=== PATIENT | female | born 1955 | race Caucasian/White ===

== ENCOUNTER → 2017-04-03 | Outpatient (CLI) | payer BC ==
--- NOTE | 2017-04-04 13:52 | MM ---
Reason for exam: screening (asymptomatic). Last mammogram was performed 1 year and 1 month ago. History: Patient is postmenopausal. Physical Findings: A clinical breast exam by your physician is recommended on an annual basis and results should be correlated with mammographic findings. MG Screening Mammo w CAD Bilateral CC and MLO view(s) were taken. Prior study comparison: March 11, 2016, bilateral MG screening mammo w CAD. October 27, 2014, bilateral MG screening mammo w CAD. There are scattered fibroglandular densities. Asymmetric breast tissue in the right breast. No significant changes when compared with prior studies. ASSESSMENT: Benign, BI-RAD 2 RECOMMENDATION: Routine screening mammogram of both breasts in 1 year.
== END | disposition home or self-care (01) ==
LOC: RADMAMWWP 12:12
PROVIDERS: ATTEND Family Medicine
DX: Z12.31 Encounter for screening mammogram for malignant neoplasm of breast (principal)

== ENCOUNTER → 2017-10-26 | Outpatient (CLI) | payer BC ==
[2017-10-26 19:20] LABS: Basophils % (A) 1 %; Eosinophils # (A) 0.1 k/uL (0-0.7); Eosinophils % (A) 4 %; HCT 42.5 % (34.0-46.0); HGB 13.9 gm/dL (11.4-16.0); Lymphocytes % (A) 31 %; MCH 30.4 pg (25.0-35.0); MCHC 32.6 g/dL (31.0-37.0); Mean Platelet Volume 7.1; Monocytes # (A) 0.2 k/uL (0-1.0); Monocytes % (A) 5 %; Neutrophils % (A) 58 %; Platelet Count 244 k/uL (150-450); RBC 4.57 m/uL (3.80-5.40); RDW 12.5 % (11.5-15.5); WBC 3.4 k/uL (3.8-10.6)
[2017-10-26 22:59] LABS: ALT 30 U/L (9-52); AST 27 U/L (14-36); Albumin 4.1 g/dL (3.5-5.0); Alkaline Phosphatase 78 U/L (38-126); Anion Gap 9 mmol/L; Blood Urea Nitrogen 20 mg/dL (7-17); Calcium 9.9 mg/dL (8.4-10.2); Carbon Dioxide 28 mmol/L (22-30); Chloride 104 mmol/L (98-107); Cholesterol 256 mg/dL (<200); Glucose 92 mg/dL (74-99); HDL Cholesterol 52 mg/dL (40-60); LDL Cholesterol,Calculated 158 mg/dL (0-99); Potassium 4.6 mmol/L (3.5-5.1); Sodium 141 mmol/L (137-145); Total Bilirubin 0.3 mg/dL (0.2-1.3); Total Protein 7.8 g/dL (6.3-8.2); Triglycerides 229 mg/dL (<150)
[2017-10-26 23:15] LABS: T4, Free (Free Thyroxine) 1.05 ng/dL (0.78-2.19)
== END | disposition home or self-care (01) ==
LOC: MMGSC 09:50
PROVIDERS: ATTEND Family Medicine
DX: Z00.00 Encounter for general adult medical examination without abnormal findings (principal)
CPT/HCPCS: 36415; 80053; 80061; 84439; 84443; 85025

== ENCOUNTER → 2018-03-28 | Outpatient (CLI) | payer BC ==
--- NOTE | 2018-03-30 08:39 | MM ---
Reason for exam: screening (asymptomatic). Last mammogram was performed 1 year ago. History: Patient is postmenopausal. Physical Findings: A clinical breast exam by your physician is recommended on an annual basis and results should be correlated with mammographic findings. MG Screening Mammo w CAD Bilateral CC and MLO view(s) were taken. Prior study comparison: April 03, 2017, bilateral MG screening mammo w CAD. March 11, 2016, bilateral MG screening mammo w CAD. The breast tissue is heterogeneously dense. This may lower the sensitivity of mammography. No suspicious abnormality. No significant changes when compared with prior studies. ASSESSMENT: Negative, BI-RAD 1 RECOMMENDATION: Routine screening mammogram of both breasts in 1 year.
== END | disposition home or self-care (01) ==
LOC: RADMAMWWP 16:48
PROVIDERS: ATTEND Obstetrics & Gynecology
DX: Z12.31 Encounter for screening mammogram for malignant neoplasm of breast (principal)
CPT/HCPCS: 77067

== ENCOUNTER → 2019-06-13 | Outpatient (CLI) | payer BC, MEDICARE ==
--- NOTE | 2019-06-14 14:06 | MM ---
Reason for exam: screening (asymptomatic). Last mammogram was performed 1 year and 2 months ago. History: Patient is postmenopausal. Physical Findings: A clinical breast exam by your physician is recommended on an annual basis and results should be correlated with mammographic findings. MG 3D Screening Mammo W/Cad Bilateral CC and MLO view(s) were taken. Prior study comparison: March 28, 2018, bilateral MG screening mammo w CAD. April 03, 2017, bilateral MG screening mammo w CAD. There are scattered fibroglandular densities. No significant changes when compared with prior studies. ASSESSMENT: Benign, BI-RAD 2 RECOMMENDATION: Routine screening mammogram of both breasts in 1 year.
== END | disposition home or self-care (01) ==
LOC: RADMAMWWP 09:45
PROVIDERS: ATTEND Obstetrics & Gynecology
DX: Z12.31 Encounter for screening mammogram for malignant neoplasm of breast (principal)
CPT/HCPCS: 77063; 77067

== ENCOUNTER → 2021-02-10 | Outpatient (CLI) | payer MEDICARE ==
--- NOTE | 2021-02-10 18:58 | CONS ---
CONSULTATION DATE OF SERVICE: 02/10/2021 REASON FOR CONSULTATION: This is a 65-year-old lady who has been evaluated in [facility] for possible obstructive sleep apnea-hypopnea syndrome. HISTORY OF PRESENT ILLNESS/SLEEP-WAKE EVALUATION: Patient's usual sleep schedule from 10:30 p.m. to 7 a.m. basically 7 days a week. No problems with falling asleep. No TV in bedroom. She usually sleeps on the side and back position with loud snoring and awakenings from sleep several times which included nocturia episodes. During the day she fall asleep and takes nap today at 3:00 p.m. and usually feels refreshed after nap. She drinks 1 glass of coffee in the morning. No history of hypnagogic hallucinations, sleep paralysis or cataplexy. Malcom Sleepiness Scale is in the high range of 16. PAST MEDICAL HISTORY: Positive for hyperlipidemia, restriction of nasal breathing. PAST SURGICAL HISTORY: C-sections x2, 1991, 1983. MEDICATIONS: Lovastatin 10 mg once a day, COQ 10 200 mg once a day, polyvitamins. SOCIAL HISTORY: Negative for smoking or using alcohol. FAMILY HISTORY: Positive for heart problems, stroke, cancer. REVIEW OF SYSTEMS: Snoring, awakenings from sleep, sleepiness during the day. No fevers. No double vision. No recent chest pain. No shortness of breath. No abdominal pain. No bleeding episodes. No blood in the urine. No seizure episodes. PHYSICAL EXAMINATION: GENERAL: lady without distress. VITAL SIGNS: BP 162/78, HR 67, RR 12, height 5 feet 2 inches, weight 140.2, temperature 98.0, oxygen saturation at room air 98%. BMI 25.6. HEENT: PERRLA, EOMI. Oropharynx extremely low position of soft palate. Mallampati 4. NECK: Neck circumference is 14 1/2 inches. Supple, no JVD. Thyroid is not palpable. LUNGS: Clear to percussion and to auscultation. Good air exchange. No wheezing or rhonchi. HEART: S1, S2 regular. No murmurs, gallops, or rubs. ABDOMEN: Soft and nontender. Bowel sounds are present. No organomegaly appreciated. EXTREMITIES: No clubbing or cyanosis. DETENTION ATTENDANT: Awake, alert, and oriented X3. Cranial nerves 2 to 7 intact. There is no fasciculation or atrophy. noted. No focal deficits observed. IMPRESSION: 1. Snoring, awakenings from sleep occasionally with nocturia, extremely low position of soft palate, sleepiness during the day. Malcom Sleepiness Scale is 16. Obstructive sleep apnea-hypopnea syndrome. 2. Significant excessive daytime sleepiness with Malcom Sleepiness Scale of 16 dictating necessity to include hypersomnia and narcolepsy without cataplexy in differential diagnosis. 3. Hyperlipidemia. 4. Status post C-sections x2. 5. Restriction of nasal breathing, possibly nasal septum deviation. PLAN: 1. Home sleep apnea test for evaluation of patient's breathing during sleep. 2. CPAP/BiPAP titration if sleep study confirms obstructive sleep apnea-hypopnea syndrome. 3. Preferable position during sleep on the side. 4. No driving if patient feels any sleepiness. 5. I will see patient for follow up visit to explain results of testing and following plan. 6. Patient may need evaluation by Ear, Nose and Throat physician because of some restriction of breathing through the nose, more on one side. Thank you very much for referring this patient for consultation. Sincerely, Jimbo Chaparro MD, PhD, FAASM Diplomat of [employer] [place] [place] Apartment Maintenance Worker of [facility] [place] MMODL / IJN: [id number] /
== END ==
LOC: SLEEP 14:02
PROVIDERS: ATTEND Internal Medicine
DX: G47.33 Obstructive sleep apnea (adult) (pediatric) (principal); R35.1 Nocturia; E78.5 Hyperlipidemia, unspecified; Z98.890 Other specified postprocedural states
CPT/HCPCS: 99202

== ENCOUNTER → 2021-02-16 | Outpatient (CLI) | payer MEDICARE ==
--- NOTE | 2021-02-17 10:32 | MM ---
Reason for exam: screening (asymptomatic). Last mammogram was performed 1 year and 8 months ago. History: Patient is postmenopausal. Physical Findings: A clinical breast exam by your physician is recommended on an annual basis and results should be correlated with mammographic findings. MG 3D Screening Mammo W/Cad Bilateral CC and MLO view(s) were taken. Prior study comparison: June 13, 2019, bilateral MG 3d screening mammo w/cad. March 28, 2018, bilateral MG screening mammo w CAD. There are scattered fibroglandular densities. No significant changes when compared with prior studies. ASSESSMENT: Benign, BI-RAD 2 RECOMMENDATION: Routine screening mammogram of both breasts in 1 year.
== END | disposition home or self-care (01) ==
LOC: RADMAMWWP 10:43
PROVIDERS: ATTEND Family Medicine
DX: Z12.31 Encounter for screening mammogram for malignant neoplasm of breast (principal); Z78.0 Asymptomatic menopausal state
CPT/HCPCS: 77063; 77067

== ENCOUNTER → 2021-02-16 | Outpatient (CLI) | payer MEDICARE ==
--- NOTE | 2021-02-16 11:37 | BD ---
EXAMINATION TYPE: Axial Bone Density DATE OF EXAM: 02/16/2021 COMPARISON: DEXA bone scan 2014 CLINICAL HISTORY: Postmenopausal female Height: 63 Weight: 138.8 FRAX RISK QUESTIONS: Alcohol (3 or more units per day): no Family History (Parent hip fracture): no Glucocorticoids (More than 3mos): no (Ex: prednisone, prednisolone, methylprednisolone, dexamethasone, and hydrocortisone). History of Fracture in Adulthood: no Secondary Osteoporosis: 1. Type 1 Diabetes: no 2. Hyperthyroidism: no 3. Menopause before 45: no 4. Malnutrition: no 5. Chronic liver disease: no Rheumatoid Arthritis: no Current Tobacco Use: no RISK FACTORS HISTORY OF: Surgery to Spine/Hip(right/left)/Wrist (right/left): no Family History of Osteoporosis: no Active: yes Diet low in dairy products/other sources of calcium: no Postmenopausal woman: age 46 Lost more than 2 inches in height since high school: no MEDICATIONS: lovastatin, vitamins Additional History: EXAM MEASUREMENTS: Bone mineral densitometry was performed using the [employer] System. Bone mineral density as measured about the Lumbar spine is: ----- L1-L4(G/cm2): 0.997 T Score Values are as follows: ----- L2: -1.9 ----- L3: -1.3 ----- L4: -1.7 ----- L1-L4: -1.5 Bone mineral density has: decreased -5.5 % since study of: 10.27.2014 Bone mineral density about the R hip (g/cm2): 0.811 Bone mineral density about the L hip (g/cm2): 0.820 T Score values are as follows: -----R Neck: -1.6 -----L Neck: -1.6 -----R Total: -1.1 -----L Total: -1.0 Bone mineral density has: decreased -0.8 % since study of: 10.27.2014 IMPRESSION: Osteopenia (T Score between -2.5 and -1) remains present. There remains slightly increased risk of fracture and the patient may be considered for treatment. Re-Screen 2-5 years. NOTE: T-SCORE=SD OF THE YOUNG ADULT MEAN.
== END | disposition home or self-care (01) ==
LOC: RADBDWWP 10:29
PROVIDERS: ATTEND Family Medicine
DX: M85.89 Other specified disorders of bone density and structure, multiple sites (principal); Z78.0 Asymptomatic menopausal state
CPT/HCPCS: 77080

== ENCOUNTER 2021-03-05 08:31 | Day surgery (SDC) | payer MEDICARE ==
[2021-03-03 11:10] VITALS: BMI 24.0
[~2021-03-05 08:31] MED LIST: LACTATED RINGERS 1,000 ML IV SCH
[2021-03-05 09:01] VITALS: RESP 16; TEMP 98
[2021-03-05] MEDS ORDERED: PROPOFOL 10 MG/ML 20 ML VIAL IV ONE (10:08)
[2021-03-05] MEDS ORDERED: LIDOCAINE 1% INJ 10MG/ML (20 ML MDV) ONE (10:08)
--- NOTE | 2021-03-05 10:30 | P.PCN ---
Date of Procedure: 03/05/21 Procedure(s) Performed: Brief history: Patient is a pleasant 65-year-old white female scheduled for an elective upper endoscopy as well as colonoscopy as a part of evaluation of intermittent dysphagia to solids and screening for colorectal neoplasia Procedure performed: Esophagogastroduodenoscopy with balloon dilation Colonoscopy with snare polypectomy Preoperative diagnosis: Intermittent dysphagia to solids Screening for colon cancer Anesthesia: MAC Procedure: After informed consent was obtained from the patient was brought into the endoscopy unit and IV sedation was administered by anesthesia under continuous monitoring. Initially upper endoscopy was done. The Olympus GF 160 video en doscope was inserted inserted into the mouth and esophagus intubated without any difficulty and was gradually advanced into the stomach and duodenum and carefully examined. The bulb and second part of the duodenum appeared normal. The scope was then withdrawn into the stomach adequately insufflated with air and upon careful examination the antrum and body, cardia and fundus appeared normal. The scope was then withdrawn into the esophagus. The GE junction was located at 35 cm to the incisors. There was a distal esophageal stricture identified at the GE junction which was dilated using 12-15 mm TTS balloon in a sequential fashion for 60 seconds. Following the dilation there was a small mucosal tear noted and further dilation was not performed. There were superficial erosions with circumferential erythema at the GE junction consistent with LA grade B reflux esophagitis. Rest of the esophagus appeared normal. Patient tolerated the procedure well. At this time the patient continued to remain sedation. Initial digital rectal examination was normal. Olympus CF 160 video colonoscope was then inserted into the rectum and gradually advanced to the cecum without any difficulty. Careful examination was performed as the scope was gradually being withdrawn. The prep was excellent. The cecum, ascending colon, appeared normal. In the hepatic flexure there was a 5 mm polyp that was removed by snare polypectomy. Rest of the transverse colon, descending colon, sigmoid colon and rectum appeared normal. Retroflexion was performed in the rectum and no lesions were noted. Patient tolerated the procedure well. Impression: 1. Upper endoscopy revealed distal esophageal stricture status post balloon dilation using 12-15 mm TTS balloon as described above and small hiatal hernia. 2. Colonoscopy revealed 5-6 mm polyp in the hepatic flexure status post snare polypectomy.. Rest of the colon appeared normal Recommendations: Findings of this examination were discussed with the patient as well as family. She was advised to remain on the liquid today. She'll be started on Prilosec 20 mg daily for reflux disease causing the esophageal stricture. She was advised to follow with the biopsy result. If the biopsy shows an adenoma she can have a repeat colonoscopy in 5 years..
[2021-03-05 10:48] VITALS: BP 113/66; PULSE 62
== END 2021-03-05 11:20 | disposition home or self-care (01) ==
LOC: ORWHC2ENDO 08:31
PROVIDERS: ATTEND Internal Medicine Gastroenterology
DX: K22.2 Esophageal obstruction (principal); Z12.11 Encounter for screening for malignant neoplasm of colon; K63.5 Polyp of colon; E78.5 Hyperlipidemia, unspecified; Z79.899 Other long term (current) drug therapy
CPT/HCPCS: 88305; 45385; 43249; J2001; J2704; C1726

== ENCOUNTER → 2022-05-13 | Outpatient (CLI) | payer MEDICARE ==
--- NOTE | 2022-05-13 13:53 | USB ---
Reason for Exam: Additional evaluation requested from abnormal screening. Patient History: Menarche at age 16. First Full-Term at age 24. Postmenopausal. Risk Values: Gracie 5 year model risk: 1.7%. NCI Lifetime model risk: 5.9%. Technique: Method: Targeted. Prior Study Comparison: 06/13/2019 Bilateral Screening Mammogram, [facility]. 02/16/2021 Bilateral Screening Mammogram, [facility]. 05/11/2022 Bilateral MG 3D screening mammo w/cad, [facility]. Findings: The periareolar of the left breast, the axilla of the left breast and the retroareolar of the left breast were scanned. There is a small hypoechoic area which may contain an internal septation. Complexes should be considered. Short-term follow-up is recommended.. Overall Assessment: Probably benign, BI-RAD 3 Management: Diagnostic Breast Ultrasound of the left breast in 3 months. A clinical breast exam by your physician is recommended on an annual basis and results should be correlated with mammographic findings. Electronically signed and approved by: Marcos Medrano D.O. Radiologis
== END | disposition home or self-care (01) ==
LOC: RADUSWWP 12:52
PROVIDERS: ATTEND Family Medicine
DX: Z12.31 Encounter for screening mammogram for malignant neoplasm of breast (principal); Z78.0 Asymptomatic menopausal state

== ENCOUNTER → 2022-08-22 | Outpatient (CLI) | payer MEDICARE ==
--- NOTE | 2022-08-22 10:43 | USB ---
Reason for Exam: Follow-up at short interval from prior study. Patient History: Menarche at age 16. First Full-Term at age 24. Postmenopausal. Risk Values: Gracie 5 year model risk: 1.7%. NCI Lifetime model risk: 5.6%. Technique: Method: Targeted. Prior Study Comparison: 06/13/2019 Bilateral Screening Mammogram, [facility]. 02/16/2021 Bilateral Screening Mammogram, [facility]. 05/11/2022 Bilateral MG 3D screening mammo w/cad, [facility]. Findings: The upper section of the breast of the left breast, the axilla of the left breast and the retroareolar of the left breast were scanned. Small cyst is redemonstrated at the left 12:00 position measuring 4 x 0.3 cm.. No solid mass is detected at this time. Management: Screening Mammogram of both breasts in 9 months. A clinical breast exam by your physician is recommended on an annual basis and results should be correlated with mammographic findings. This exam should not preclude additional follow-up of suspicious palpable abnormalities. Results were given to the patient verbally at the time of exam. Electronically signed and approved by: Ceasar Carlton M.D. Radiologis
== END | disposition home or self-care (01) ==
LOC: RADUSWWP 10:04
PROVIDERS: ATTEND Internal Medicine
DX: R92.8 Other abnormal and inconclusive findings on diagnostic imaging of breast (principal); N60.02 Solitary cyst of left breast; Z78.0 Asymptomatic menopausal state

== ENCOUNTER → 2023-06-26 | Outpatient (CLI) | payer MEDICARE ==
--- NOTE | 2023-06-26 13:17 | MM ---
Reason for Exam: Additional evaluation requested from prior study. Last mammogram was performed 1 year(s) and 2 month(s) ago. Patient History: Menarche at age 16. First Full-Term at age 24. Postmenopausal. Risk Values: Gracie 5 year model risk: 1.7%. NCI Lifetime model risk: 5.4%. Prior Study Comparison: 06/13/2019 Bilateral Screening Mammogram, [facility]. 02/16/2021 Bilateral Screening Mammogram, [facility]. 05/11/2022 Bilateral MG 3D screening mammo w/cad, [facility]. 05/13/2022 Left US breast workup limited LT, [facility]. 08/22/2022 Left US breast LT, [facility]. Tissue Density: There are scattered fibroglandular densities. Findings: Analyzed By CAD. Finding may represent the left simple appearing cyst on prior ultrasound on 08/22/2022 is stable measuring up to 3 mm. No new suspicious masses, calcifications or distortions. Overall Assessment: Benign, BI-RAD 2 Management: Screening Mammogram of both breasts in 1 year. Results were given to the patient verbally at the time of exam. Patient should continue monthly self-breast exams. A clinical breast exam by your physician is recommended on an annual basis. This exam should not preclude additional follow-up of suspicious palpable abnormalities. Note on Gracie scores and lifetime risk: 1. A Gracie score greater than 3% is considered moderate risk. If this is the case, consider specialist referral to assess eligibility for a risk reducing agent. 2. If overall lifetime risk for the development of breast cancer is 20% or higher, the patient may qualify for future screening with alternating mammogram and breast MRI. Electronically signed and approved by: Anuj Coronado DO
== END | disposition home or self-care (01) ==
LOC: RADMAMWWP 12:43
PROVIDERS: ATTEND Internal Medicine
DX: R92.8 Other abnormal and inconclusive findings on diagnostic imaging of breast (principal); Z78.0 Asymptomatic menopausal state
CPT/HCPCS: 77066; G0279; 77062

== ENCOUNTER → 2023-06-27 | Outpatient (CLI) | payer MEDICARE ==
--- NOTE | 2023-06-27 09:19 | US ---
EXAMINATION TYPE: US liver DATE OF EXAM: 06/27/2023 COMPARISON: NONE CLINICAL INDICATION: Female, 68 years old with history of K76.89 liver cyst; Patient states she has a liver cyst. TECHNIQUE: Multiple sonographic images of the right upper quadrant are obtained. FINDINGS: EXAM MEASUREMENTS: Liver Length: 15.1 cm Gallbladder Wall: 0.1 cm CBD: 0.6 cm Right Kidney: 9.7 x 4.6 x 3.9 cm Pancreas: Tail obscured by overlying bowel gas. Main pancreatic duct = 2.0 mm Liver: Liver cysts seen. Largest in right = 1.1 x 1.0 x 0.9 cm and largest in left = 3.8 x 3.5 x 2 .8 cm. Gallbladder: Echogenic foci with comet tail artifact seen. Echogenic areas seen adjacent to wall - 0.4 cm Evidence for sonographic Sauer's sign: neg CBD: wnl Right Kidney: Lower pole hypoechoic area = 0.9 x 0.9 x 0.8 cm. Superior pole hypoechoic area = 0.9 x 0.7 x 0.7 cm The visualized portions of the finger is unremarkable. The tail is obscured by overlying bowel gas. L iver demonstrates a couple of simple cysts. Cholelithiasis demonstrated. No wall thickening. Adenomyo matosis identified with comet tail artifact. No pericholecystic fluid. Per grape crusher, negative sonographic Sauer sign. Common bile duct is within normal limits. There ar e 2 subcentimeter hypoechoic regions within the right mid kidney cortex. No hydronephrosis or nephrol ithiasis. IMPRESSION: 1. No acute process. 2. Simple hepatic cysts. 3. Cholelithiasis. 4. Adenomyomatosis of the gallbladder. 5. There are 2 subcentimeter hypoechoic regions within the right. One appears to represent a cyst wit h the other appearing to blend in with the surrounding parenchyma. Follow-up ultrasound in 6 months i s recommended.
--- NOTE | 2023-06-27 10:05 | BD ---
EXAMINATION TYPE: Axial Bone Density DATE OF EXAM: 06/27/2023 CLINICAL HISTORY: 68 years old Female. ICD-10 CODE: M85.851 OSTEOPENIA HIP Height: 63.5 Weight: 145.2 FRAX RISK QUESTIONS: Alcohol (3 or more units per day): no Family History (Parent hip fracture): no Glucocorticoids (More than 3mos): no (Ex: prednisone, prednisolone, methylprednisolone, dexamethasone, and hydrocortisone). History of Fracture in Adulthood: no Secondary Osteoporosis: 1. Type 1 Diabetes: no 2. Hyperthyroidism: no 3. Menopause before 45: no 4. Malnutrition: no 5. Chronic liver disease: no Rheumatoid Arthritis: no Current Tobacco Use: no RISK FACTORS HISTORY OF: Surgery to Spine/Hip(right/left)/Wrist (right/left): no Family History of Osteoporosis: no Active: yes Diet low in dairy products/other sources of calcium: no Postmenopausal woman: yes Lost more than 2 inches in height since high school: no Additional History: EXAM MEASUREMENTS: Bone mineral densitometry was performed using the [employer]. Bone mineral density as measured about the Lumbar spine is: ----- L1-L4(G/cm2): 0.983 T Score Values are as follows: ----- L1: -1.1 ----- L2: -1.7 ----- L3: -1.6 ----- L4: -2.2 ----- L1-L4: -1.6 Z Score Values are as follows: ----- L1: 0.5 ----- L2: 0.0 ----- L3: 0.1 ----- L4: -0.6 ----- L1-L4: 0.0 Bone mineral density has: decreased -1.4 % since study of: 02.16.2021 Bone mineral density about the R hip (g/cm2): 0.875 Bone mineral density about the L hip (g/cm2): 0.849 T Score values are as follows: -----R Neck: -1.7 -----L Neck: -1.7 -----R Total: -1.1 -----L Total: -1.3 Z Score values are as follows: -----R Neck: -0.1 -----L Neck: -0.1 -----R Total: 0.3 -----L Total: 0.1 Bone mineral density has: decreased -1.4 % since study of: 6.1.2020 FRAX%s: The graph provided illustrates a 10.7% chance for a major osteoporotic fx and a 1.7% chance f or the hips probability for fx in 10 years time. IMPRESSION: Osteopenia (T Score between -2.5 and -1). There is slightly increased risk of fracture and the patient may be considered for treatment. Re-Screen 2-5 years. NOTE: T-SCORE=SD OF THE YOUNG ADULT MEAN.
--- NOTE | 2023-06-27 13:39 | CA ---
Transthoracic Echo Report Name: Silvana Aponte Age: 68 Gender: F : 1955 Exam Date: 06/27/2023 08:42 Exam Location: [facility] Ht (in): 64 Wt (lb): 140 Ordering Physician: Jorge Warren MD Attending/Referring Phys: Make Up Editor Karen Brandt RDCS Procedure CPT: Indications: I35.8 AORTIC VALVE DISORDERS K76.89 liver M85.851 Cardiac Hx: Technical Quality: Fair Contrast 1: Total Dose (mL): Contrast 2: Total Dose (mL): MEASUREMENTS (Male / Female) Normal Values 2D ECHO LV Diastolic Diameter PLAX 3.5 cm 4.2 - 5.9 / 3.9 - 5.3 cm LV Systolic Diameter PLAX 2.3 cm IVS Diastolic Thickness 1.1 cm 0.6 - 1.0 / 0.6 - 0.9 cm LVPW Diastolic Thickness 1.2 cm 0.6 - 1.0 / 0.6 - 0.9 cm LV Relative Wall Thickness 0.6 RV Internal Dim ED PLAX 2.8 cm LA Volume 31.8 cm??? 18 - 58 / 22 - 52 cm??? LA Volume Index 18.7 cm???/m??? 16 - 28 cm???/m??? M-MODE Aortic Root Diameter MM 2.5 cm LA Systolic Diameter MM 3.8 cm LA Ao Ratio MM 1.5 AV Cusp Separation MM 1.6 cm DOPPLER AV Peak Velocity 154.7 cm/s AV Peak Gradient 9.6 mmHg AV Mean Velocity 108.7 cm/s AV Mean Gradient 5.3 mmHg AV Velocity Time Integral 34.3 cm LVOT Peak Velocity 120.2 cm/s LVOT Peak Gradient 5.8 mmHg LVOT Velocity Time Integral 30.3 cm MV Area PHT 3.1 cm??? Mitral E Point Velocity 83.6 cm/s Mitral A Point Velocity 71.9 cm/s Mitral E to A Ratio 1.2 MV Deceleration Time 245.6 ms MV E' Velocity 5.8 cm/s Mitral E to MV E' Ratio 14.3 TR Peak Velocity 246.0 cm/s TR Peak Gradient 24.2 mmHg Right Ventricular Systolic Press 28.4 mmHg FINDINGS Left Ventricle Mildly increased left ventricular wall thickness. Left ventricular cavity size normal. Normal left ventricular systolic function with no obvious regional wall motion abnormalities. Left ventricular ejection fraction is estimated at 55-60 %. Right Ventricle Normal right ventricular size and function. Right ventricular systolic pressure within normal limits. Right Atrium Normal right atrial size. Left Atrium Normal left atrial size. Mitral Valve Structurally normal mitral valve. No mitral stenosis. Trace to mild mitral regurgitation. Aortic Valve Trileaflet aortic valve. No aortic stenosis. Trace aortic regurgitation. Tricuspid Valve Structurally normal tricuspid valve. Mild tricuspid regurgitation. Pulmonic Valve Trace pulmonic regurgitation. Pericardium No pericardial effusion. Aorta Normal size aortic root and proximal ascending aorta. CONCLUSIONS LVH with preserved systolic function Previewed by: Dr. Bahman Pandey MD (Electronically Signed) Final Date: 27 June 2023 13:38
== END | disposition home or self-care (01) ==
LOC: RADUSWWP 07:09
PROVIDERS: ATTEND Internal Medicine
DX: I35.8 Other nonrheumatic aortic valve disorders (principal); K76.89 Other specified diseases of liver; M85.851 Other specified disorders of bone density and structure, right thigh; K80.20 Calculus of gallbladder without cholecystitis without obstruction; K82.8 Other specified diseases of gallbladder
CPT/HCPCS: 76705; 77080; 93306

== ENCOUNTER → 2023-10-02 | Outpatient (CLI) | payer MEDICARE ==
--- NOTE | 2023-10-02 17:50 | P.PN ---
Subjective DATE: 10/02/2023 FOLLOW UP VISIT. Patient with obstructive sleep apnea hypopnea syndrome return to sleep center for follow-up visit. Information from previous visit have been reviewed. Patient is using PAP equipment every night for the whole night, getting PAP supplies in time. The patient does not have significant problems with the mask, PAP unit and humidification. [place] sleepiness scale is 8 which is normal. I checked information from PAP unit. PAP unit pressure 7 cm H2O. Usage is 98 % for more then 4 hours, average 8 hours per night. Leak is 6 l/m, which is in acceptable range. Apnea Hypopnea Index is 2.5, which is normal. Motor live expectancy of CPAP unit exceeded. MEDICATIONS:1. Atorvastatin 40 mg once a day 2. Ezetimibe 10 mg once a day 3. COQ-10 200 mg 4. Calcium supplement 600 mg once a day During physical exam: GENERAL: A pleasant patient without any distress. VITAL SIGNS: BP 149/78, HR 77, RR 12, weight 143.4, temperature 98.0, oxygen saturation at room air 98 % . HEENT: PERRLA, EOMI.low position of soft palate, Mallapati 4 . NECK: Supple. No JVD. LUNGS: Clear to percussion and to auscultation. Good air exchange. No wheezing or rhonchi. HEART: S1, S2 regular. ABDOMEN: Soft and nontender.[] EXTREMITIES: No clubbing or cyanosis. DESULFURIZER OPERATOR: Awake, alert, and oriented x3. No focal deficit. Impressions: 1. Obstructive sleep apnea-hypopnea syndrome. Patient demonstrated great compliance with treatment, benefiting from treatment. 2. Hyperlipidemia. 3. Possibly nasal septum deviation. 4. Status post C-sections 2. Plan: 1. Continue using PAP equipment every night for the whole night. Prescription to replace CPAP unit. 2. To change air filter at least 1-2 times per month. 3. PAP unit should stay lower then position of the head. 4. Advised patient to remove all remaining water from humidifier canister daily and make it dry after each usage. Refill canister with fresh distilled water before each usage. 5. Sleep hygiene with regular time in bed for at least 8 hours. 6. Precautions related to driving. No driving if feel any sleepiness. 7. I will maintain prescription for PAP supplies including mask, tube, filters. 8. Follow up visit in 1-3 months after patient will get new CPAP unit. 9. Watching weight. Thank you very much for allowing me to participate in the management of your patient. Jimbo Chaparro MD, PhD, FAASM. Diplomat of [place] [employer], Sleep Medicine Board by [place] Assurance Engineer of [facility] [place]
== END ==
LOC: 3 N SLEEP 13:29
PROVIDERS: ATTEND Internal Medicine
DX: G47.33 Obstructive sleep apnea (adult) (pediatric) (principal); E78.5 Hyperlipidemia, unspecified; Z99.89 Dependence on other enabling machines and devices; Z98.890 Other specified postprocedural states
CPT/HCPCS: 99212

== ENCOUNTER → 2024-01-11 | Outpatient (CLI) | payer MEDICARE ==
--- NOTE | 2024-01-11 16:00 | P.PN ---
Subjective DATE: 01/11/2024 FOLLOW UP VISIT. Patient with obstructive sleep apnea hypopnea syndrome return to sleep center for follow-up visit. Information from previous visit have been reviewed. This is first visit after patient received new CPAP unit Patient is using PAP equipment every night for the whole night, getting PAP supplies in time. The patient does not have significant problems with the mask, PAP unit and humidification. [place] sleepiness scale is 8, which is normal. I checked information from PAP unit. PAP unit pressure 7 cm H2O. Usage is 97% for more then 4 hours, average 8.5 hours per night. Leak is 6.1 l/m, which is in acceptable range. Apnea Hypopnea Index is 2.8, which is normal. MEDICATIONS:1. Atorvastatin 40 mg once a day 2. Ezetimibe 10 mg once a day 3. Calcium supplement 600 mg once a day 4. COQ-10 200 mg During physical exam: GENERAL: A pleasant patient without any distress. VITAL SIGNS: BP 149/78, HR 72, RR 12, weight 145.2, temperature 98.2, oxygen saturation room air 99%. HEENT: PERRLA, EOMI.low position of soft palate, Mallapati 4 . NECK: Supple. No JVD. LUNGS: Clear to percussion and to auscultation. Good air exchange. No wheezing or rhonchi. HEART: S1, S2 regular. ABDOMEN: Soft and nontender.[] EXTREMITIES: No clubbing or cyanosis. SQL SERVER BI DEVELOPER: Awake, alert, and oriented x3. No focal deficit. Impressions: 1. Obstructive sleep apnea-hypopnea syndrome. Patient demonstrated great compl iance with treatment, benefiting from treatment. 2. Hyperlipidemia. 3. Possible nasal septum deviation. 4. Status post C-sections x 2. Plan: 1. Continue using PAP equipment every night for the whole night. 2. To change air filter at least 1-2 times per month. 3. PAP unit should stay lower then position of the head. 4. Advised patient to remove all remaining water from humidifier canister daily and make it dry after each usage. Refill canister with fresh distilled water before each usage. 5. Sleep hygiene with regular time in bed for at least 8 hours. 6. Precautions related to driving. No driving if feel any sleepiness. 7. I will maintain prescription for PAP supplies including mask, tube, filters. 8. Watching weight. 9. Follow up visit in 6 months or earlier if patient has any problems. Thank you very much for allowing me to participate in the management of your patient. Jimbo Chaparro MD, PhD, FAASM. Diplomat of [place] [employer], Sleep Medicine Board by [employer] Reinsurance Analyst of [facility] [place]
== END ==
LOC: 3 N SLEEP 15:11
PROVIDERS: ATTEND Internal Medicine
DX: G47.33 Obstructive sleep apnea (adult) (pediatric) (principal); E78.5 Hyperlipidemia, unspecified; Z98.890 Other specified postprocedural states; Z99.89 Dependence on other enabling machines and devices
CPT/HCPCS: 99212

== ENCOUNTER → 2024-08-07 | Outpatient (CLI) | payer MEDICARE ==
--- NOTE | 2024-08-07 10:40 | US ---
EXAMINATION TYPE: US kidneys/renal and bladder DATE OF EXAM: 08/07/2024 COMPARISON: NONE CLINICAL INDICATION: Female, 69 years old with history of R77.8 OTHER SPECIFIED ABNORMALITIES OF PLAS MA PROT; abnormal labs, stage 4 kidney dz TECHNIQUE: Grayscale imaging of the bilateral kidneys and urinary bladder: FINDINGS: EXAM MEASUREMENTS: Right Kidney: 10.3 x 3.8 x 4.1 cm Left Kidney: 10.3 x 5.6 x 4.9 cm Right Kidney: cystic area seen measuring 1.0 x 0.9 x 0.8cm at the inferior pole Left Kidney: 2 cystic areas seen. One at inferior pole measuring 1.3 x 1.2 x 1.1cm and the other in t he renal sinus measuring 1.3 x 1.9 x 0.9cm Bladder: wnl Bilateral Jets seen: No There is no evidence for hydronephrosis at this point in time. No nephrolithiasis is seen. No mike s are identified. The urinary bladder is anechoic. IMPRESSION: 1. No evidence for obstructive uropathy. 2. Simple appearing bilateral cysts. [facility], , 08/07/2024 10:38 AM
== END | disposition home or self-care (01) ==
LOC: RADUSWWP 09:57
PROVIDERS: ATTEND Internal Medicine Nephrology
DX: R77.8 Other specified abnormalities of plasma proteins (principal); I12.9 Hypertensive chronic kidney disease with stage 1 through stage 4 chronic kidney disease, or unspecified chronic kidney disease; N28.1 Cyst of kidney, acquired
CPT/HCPCS: 76770

== ENCOUNTER → 2024-08-07 | Outpatient (CLI) | payer MEDICARE ==
--- NOTE | 2024-08-07 12:52 | MM ---
Reason for Exam: Screening (asymptomatic). Last mammogram was performed 1 year(s) and 1 month(s) ago. Patient History: Menarche at age 16. First Full-Term at age 24. Postmenopausal. Risk Values: Gracie 5 year model risk: 1.7%. NCI Lifetime model risk: 5.1%. Prior Study Comparison: 02/16/2021 Bilateral Screening Mammogram, [facility]. 05/11/2022 Bilateral MG 3D screening mammo w/cad, [facility]. 06/26/2023 Bilateral MG 3D diag mammo w/cad LINDA, [facility]. Tissue Density: There are scattered areas of fibroglandular density. Findings: Analyzed By CAD. Right breast: There is no suspicious group of microcalcifications or new suspicious mass. Left breast: There is no suspicious group of microcalcifications or new suspicious mass. Overall Assessment: Negative, BI-RAD 1 Management: Screening Mammogram of both breasts in [address] [facility] will attempt to contact patient to return for supplemental views and ultrasound if indicated. Patient should continue monthly self-breast exams. A clinical breast exam by your physician is recommended on an annual basis. This exam should not preclude additional follow-up of suspicious palpable abnormalities. Note on Gracie scores and lifetime risk: 1. A Gracie score greater than 3% is considered moderate risk. If this is the case, consider specialist referral to assess eligibility for a risk reducing agent. 2. If overall lifetime risk for the development of breast cancer is 20% or higher, the patient may qualify for future screening with alternating mammogram and breast MRI. [facility], , 08/07/2024 12:49 PM. Electronically signed and approved by: Anuj Coronado DO
== END | disposition home or self-care (01) ==
LOC: RADMAMWWP 10:01
PROVIDERS: ATTEND Internal Medicine
DX: Z12.31 Encounter for screening mammogram for malignant neoplasm of breast (principal); Z78.0 Asymptomatic menopausal state; R92.323 Mammographic fibroglandular density, bilateral breasts
CPT/HCPCS: 77067

== ENCOUNTER → 2024-09-05 | Outpatient (CLI) | payer MEDICARE ==
[2024-09-05 10:42] VITALS: BP 161/79; PULSE 92; RESP 16; TEMP 98.2
--- NOTE | 2024-09-05 11:01 | P.PROGSL ---
Subjective DATE: 09/05/2024 FOLLOW UP VISIT. Patient with obstructive sleep apnea hypopnea syndrome return to sleep center for follow-up visit. Information from previous visit have been reviewed. Patient is using PAP equipment every night for the whole night, getting PAP supplies in time. The patient does not have significant problems with the mask, PAP unit and humidification. [place] sleepiness scale is 6, which is normal. I checked information from PAP unit. PAP unit pressure 7 cm H2O. Usage is 100% for more then 4 hours, average 6.1 hours per night. Leak is 5 l/m, which is in acceptable range. Apnea Hypopnea Index is 3.9, which is normal. MEDICATIONS have been reviewed, please see below. During physical exam: GENERAL: A pleasant patient without any distress. VITAL SIGNS: Please see below, weight is 142 lbs. HEENT: PERRLA, EOMI.low position of soft palate, Mallapati 4. NECK: Supple. No JVD. LUNGS: Clear to percussion and to auscultation. Good air exchange. No wheezing or rhonchi. HEART: S1, S2 regular. ABDOMEN: Soft and nontender.[] EXTREMITIES: No clubbing or cyanosis. AUTOMATIC LEHR OPERATOR: Awake, alert, and oriented x3. No focal deficit. Impressions: 1. Obstructive sleep apnea-hypopnea syndrome. Patient demonstrated great compliance with treatment, benefiting from treatment. 2. Hyperlipidemia. 3. Possible nasal septum deviation. 4. Status post x 2. 5. Hypertension in the office. Plan: 1. Continue using PAP equipment every night for the whole night. 2. Sleep hygiene with regular time in bed for at least 7.5-8 hours 3. PAP unit should stay lower then position of the head. 4. Advised patient to remove all remaining water from humidifier canister daily and make it dry after each usage. Refill canister with fresh distilled water before each usage. 5. Watching weight. 6. Precautions related to driving. No driving if feel any sleepiness. 7. I will maintain prescription for PAP supplies including mask, tube, filters. 8. Follow up visit in 8 months or earlier if patient has any problems. 9. Low-sodium diet Thank you very much for allowing me to participate in the management of your patient. Jimbo Chaparro MD, PhD, FAASM. Diplomat of [place] [employer], Sleep Medicine Board by [place] [employer] Sub Acute Care Nurse of [facility] [place] Objective - Vital Signs Vital Signs: Vital Signs Temp 98.2 F 09/05/24 10:41 Pulse 92 09/05/24 10:41 Resp 16 09/05/24 10:41 BP 161/79 09/05/24 10:41 Pulse Ox 96 09/05/24 10:41 FiO2 Intake & Output 09/04/24 09/05/24 09/05/24 18:59 06:59 18:59 Weight 64.41 kg Home Medications: Home Medications Medication Instructions Recorded Confirmed Type Multivitamins, Thera [Multivitamin 1 tab PO DAILY 03/03/21 09/05/24 History (formulary)] Atorvastatin [Lipitor] 40 mg PO DAILY 09/05/24 09/05/24 History Calcium Carbonate/Vitamin D3 See Rx Instructions .ROUTE .COMPLEX 09/05/24 09/05/24 History [Calcium 600-Vit D3 5 Mcg (200 Iu)] Ezetimibe [Zetia] 10 mg PO DAILY 09/05/24 09/05/24 History
== END ==
LOC: 3 N SLEEP 10:29
PROVIDERS: ATTEND Internal Medicine
DX: G47.33 Obstructive sleep apnea (adult) (pediatric) (principal); E78.5 Hyperlipidemia, unspecified; I10 Essential (primary) hypertension; Z99.89 Dependence on other enabling machines and devices; Z98.890 Other specified postprocedural states
CPT/HCPCS: 99212